=== PATIENT | male | born 1970 | race Caucasian/White ===

== ENCOUNTER 2017-06-28 12:48 | Emergency (ER) | payer BC ==
[~2017-06-28] VITALS: Ht 180.3 cm; Wt 122.5 kg
[2017-06-28 13:24] VITALS: BP 120/61; PULSE 71; RESP 18; TEMP 98.3; O2SAT 93
--- NOTE | 2017-06-28 14:31 | PD ---
HPI Chief Complaint: Pain: Acute or Chronic Time Seen by Provider: 14:20 Travel History International Travel<30 days: No Contact w/Intl Traveler<30days: No Traveled to known affect area: No History of Present Illness HPI 46-year-old male presents emergency department with pain swelling and warmth to the right distal foot the base of the third and fourth toes. Patient denies any specific injury when it started, and states he woke up with it last Thursday. It is a sharp bubbly like burning pain, it is worse with weightbearing. He states he then tripped over his dog which exacerbated his symptoms. He denies rash or numbness or tingling. No history of gout in the past. Pain is currently 9 out of 10, worse with palpation, movement, or ambulation. Patient has no known drug allergies. [facility] Social History Alcohol Use: Yes Tobacco Use: No Substance Use: No Allergies-Medications (Allergen,Severity, Reaction): Coded Allergies: No Known Allergies (Unverified , 06/28/17) Review of Systems Except as stated in HPI: all other systems reviewed are Neg General / Constitutional: No: Fever Eyes: No: Visual changes HENT: No: Headaches Cardiovascular: No: Chest Pain or Discomfort Respiratory: No: Shortness of Breath Gastrointestinal: No: Abdominal Pain Genitourinary: No: Dysuria Musculoskeletal: Positive: Arthralgias, Edema (1+ pitting bilaterally), Pain ( See history of present illness) Skin: No Rash Neurologic: No: Weakness Psychiatric: No: Depression Endocrine: No: Polydipsia Hematologic/Lymphatic: No: Easy Bruising Physical Exam Narrative GENERAL: Moderately obese male in mild distress. SKIN: Warm and dry. Normal color. Normal turgor. No rash. Patient has mild erythema at the distal right foot at the base of the third and fourth toes. This area has increased warmth as well. No ecchymosis. HEAD: Atraumatic. Normocephalic. EYES: Pupils equal and round. No scleral icterus. No injection or drainage. ENT: No nasal bleeding or discharge. Mucous membranes pink and moist. Pharynx is clear. Airways patent. NECK: Trachea midline. No JVD. CARDIOVASCULAR: Regular rate and rhythm. RESPIRATORY: No accessory muscle use. Clear to auscultation. Breath sounds equal bilaterally. GASTROINTESTINAL: Abdomen soft, non-tender, nondistended. Hepatic and splenic margins not palpable. MUSCULOSKELETAL: Extremities without clubbing, cyanosis, or edema. No obvious deformities. NEUROLOGICAL: Awake and alert. No obvious cranial nerve deficits. Motor grossly within normal limits. Five out of 5 muscle strength in the arms and legs. Normal speech. PSYCHIATRIC: Appropriate mood and affect; insight and judgment normal. Data Data Last Documented VS Vital Signs Date Time Temp Pulse Resp B/P (MAP) Pulse Ox O2 Delivery O2 Flow Rate FiO2 06/28/17 13:24 98.3 71 18 120/61 (80) 93 Orders Orders Foot, Complete ([id number]) (06/28/17 14:20) Ice/Cold Pack (06/28/17 14:20) Prednisone (Deltasone) (06/28/17 15:00) [facility] Medical Decision Making Medical Screen Exam Complete: Yes Emergency Medical Condition: Yes Differential Diagnosis Right foot arthralgia. Fracture. Gout. Narrative Course X-ray of the right foot is obtained showing no acute fracture or dislocation. I suspect gout versus cellulitis. Patient will be treated with prednisone 40 mg now. Patient continued on prednisone 20 mg twice daily for 5 days. Patient can take extra strength Tylenol as needed for pain as well. Patient should watch his diet as discussed, and push fluids. Patient to follow-up with his primary care physician as needed. Work note is given. Diagnosis Primary Impression: Gouty arthritis of right foot Patient Instructions: General Instructions, Gout (ED), Low Purine Diet (ED) Departure Forms: Work Release Enter return to work date: July 02, 2017 Additional Instructions: I suspect gout versus cellulitis. Patient will be treated with prednisone 40 mg now. Patient continued on prednisone 20 mg twice daily for 5 days. Patient can take extra strength Tylenol as needed for pain as well. Patient should watch his diet as discussed, and push fluids. Patient to follow-up with his primary care physician as needed. Work note is given. Scripts Prednisone (Prednisone) 20 Mg Tab 20 MG PO BID for 5 Days, #10 TAB 0 Refills Prov: Rosas Wilde MD 06/28/17 Disposition: 01 DISCHARGE HOME Condition: Stable Pranay Dong Jun 28, 2017 14:31
[2017-06-28] MEDS ORDERED: predniSONE 20 MG TAB PO ONE (15:00)
[2017-06-28] MEDS ORDERED: PRED20 PO (15:05)
--- NOTE | 2017-06-28 15:35 | RADRPT ---
EXAM DATE/TIME: 06/28/2017 14:31 [facility] COMPARISON: No previous studies available for comparison. INDICATIONS : Pain and swelling right foot, denies injury MEDICAL HISTORY : Previous right foot fracture SURGICAL HISTORY : None. ENCOUNTER: Initial ACUITY: 1 week PAIN SCORE: 4/10 LOCATION: Right Foot FINDINGS: There is fracturing of the base of the fifth metatarsal. No other possible fracture is seen. The bone s and joints are normally aligned. There is soft tissue swelling seen over the forefoot. CONCLUSION: 1. Fracture deformity at the base of fifth metatarsal. 2. Soft tissue swelling over the forefoot. Maurice Tejada MD on June 28, 2017 at 15:31 Board Certified Radiologist. This report was verified electronically.
== END 2017-06-28 15:33 | disposition home or self-care (01) ==
LOC: NEPD 12:48
DX: M10.071 Idiopathic gout, right ankle and foot (principal)
CPT/HCPCS: 73630; 99283; J7512